=== PATIENT | male | born 1955 | race Caucasian/White ===

== ENCOUNTER 2022-03-14 18:21 | Inpatient (IN) | payer BC, OTHER ==
[~2022-03-14] VITALS: Ht 165.1 cm; Wt 71.7 kg
[2022-03-14 19:15] VITALS: BP_SYST 114
--- NOTE | 2022-03-14 19:30 | NUR ---
Patient to ER bed [facility] to [place] for evaluation. Side rails up. Report given to Arianne SHELBY.
[2022-03-14] MEDS ORDERED: NACL 0.9% 1,000 ML IV ONE ×2 (20:00→22:30)
[2022-03-14] MEDS ORDERED: MORPHINE 4 MG INJ. 4 MG/ML VIAL IVP ONE (20:00)
[2022-03-14] MEDS ORDERED: ONDANSETRON HCL 4 MG/2 ML VIAL IVP ONE (20:00)
--- NOTE | 2022-03-14 20:00 | NUR ---
Pt. presents emergency department with a few day history of moderate to severe, worsening, constant lower right back pain which feels like tightness. Patient states he has had a kidney stone before and it feels similar to this. Patient notes an episode of vomiting after eating which he believes is related to his pain. He denies any testicular pain, fever, or chills. Patient's notes a recent prostate surgery 12/18/2021.
[2022-03-14 20:27] LABS: BASOPHILS % (AUTO) 0.1 % (0.0-2.0); HEMATOCRIT 41.8 % (36-54); HEMOGLOBIN 13.9 g/dL (14.0-18.0); LYMPHOCYTES # (AUTO) 0.3 K/uL (1.0-5.5); LYMPHOCYTES % (AUTO) 2.9 % (20.5-51.5); MEAN CORPUSCULAR HEMOGLOBIN 31 pg (27-31); MEAN CORPUSCULAR HGB CONC 33 % (32-36); MEAN CORPUSCULAR VOLUME 93 fL (79.0-98.0); MONOCYTES % (AUTO) 0.5 % (1.7-9.3); NEUTROPHILS # (AUTO) 8.7 K/uL (1.8-7.7); NEUTROPHILS % (AUTO) 96.5 % (40.0-70.0); PLATELET COUNT (AUTO) 159 K/uL (130-430); RED BLOOD CELL COUNT(AUTO) 4.49 MIL/uL (4.2-6.2); RED CELL DISTRIBUTION WIDTH 13.7 % (9.0-15.0)
[2022-03-14] MEDS ORDERED: KETOROLAC TROMETHAMINE 30 MG VIAL IVP ONE (20:30)
--- NOTE | 2022-03-14 20:30 | NUR ---
# 20 gauge angiocath placed to RAC. Use of asceptic technique. Opsite placed over site. Blood return noted. Blood for lab drawn from site. Flushed with 10 cc of normal saline. No evidence of infiltration noted. Patient tolerated well.
--- NOTE | 2022-03-14 20:35 | NUR ---
Pt moved to bed 6,Report given to Radha SHELBY.
[2022-03-14 20:45] LABS: CREATININE 1.78 mg/dL (0.55-1.30)
[2022-03-14 20:51] LABS: ALBUMIN 3.6 g/dL (3.4-4.8); TOTAL BILIRUBIN 0.7 mg/dL (0.0-1.0)
--- NOTE | 2022-03-14 21:00 | NUR ---
PT FROM HOME WITH C/O OF RIGHT FLANK PAIN X A COUPLE OF HOURS. PT STATES WHEN THE PAIN STARTED, HE STARTED EXPERIENCING N/V, REPORTS 4 EPISODES VOMITING. DENIES HEMATEMESIS, AND URINARY SYMPTOMS. VSS, SAFETY PRECAUTIONS IN PLACE AND CONNECTED TO MONITOR.
--- NOTE | 2022-03-14 21:09 | NUR ---
Medicated per MD orders. IVF infusing with no s/s of infiltration at this time. Will cont to monitor
[2022-03-14 21:21] LABS: BILIRUBIN,URINE NEGATIVE (NEGATIVE); BLOOD, URINE 3+ (NEGATIVE); CLARITY/URINE SL CLOUDY (CLEAR); COLOR,URINE YELLOW (YELLOW); GLUCOSE,URINE 2+ (NEGATIVE); KETONES,URINE 2+ (NEGATIVE); LEUKOCYTE ESTERASE ,URINE 1+ (NEGATIVE); NITRITE, URINE POSITIVE (NEGATIVE); PH,URINE 5.5 (5.0-8.0); PROTEIN URINE 1+ (NEGATIVE); UROBILINOGEN,URINE 0.2 (0.2-1.0)
[2022-03-14 21:31] LABS: RBC,URINE 80-100 /HPF (0-3)
[2022-03-14 21:32] LABS: BACTERIA,URINE MANY /HPF (None Seen); WBC,URINE >100 /HPF (0-3)
[2022-03-14] MEDS ORDERED: cefTRIAXone 1 GM in D5W 50 ML IV ONE (21:45)
--- NOTE | 2022-03-14 22:00 | NUR ---
COVID SWAB SENT COLLECTED AND SENT TO LAB.
--- NOTE | 2022-03-14 22:07 | NUR ---
Admit bed requested Patient will be admitted to care of Dr.PALIWAL Heath Admitted to MED SURG unit. Diagnosis UTI,KIDNEY STONE Inpatient (Yes or No) YES Observation (Yes or No) NO Orientation concerns or request close to nursing station (Yes or No) NO Covid Status PENDING On vent or bipap NO Isolation requirements NO Needs a sitter NO From Home (Yes or if No enter name of facility) YES Requires Dialysis (Yes or No) NO Med Rec Completed (Yes of No) PENDING
--- NOTE | 2022-03-14 22:10 | NUR ---
Patient will be admitted to care of DR. RICE. Admitted to TELEMETRY unit. Will go to room 118. Belongings list completed. Complete and up to date summary report printed. SBAR report given GILBERT SHELBY at bedside with opportunity for questions.
[2022-03-14] MEDS ORDERED: D5/0.45 NS 1,000 ML IV SCH (22:15)
[2022-03-14] MEDS ORDERED: cefTRIAXone 1 GM VIAL ONE (22:27)
[2022-03-14] MEDS ORDERED: NS 500 ML IV ONE (22:45)
[2022-03-14] MEDS ORDERED: ACETAMINOPHEN 500 MG TABLET PO ONE (22:45)
--- NOTE | 2022-03-14 22:50 | NUR ---
ADMISSION NOTE Received patient from ER via gurney. Patient admitted with diagnosis of UTI/ Kidney Stone. Patient is awake, alert, oriented X 4. Patient oriented to hospital room, call light, toileting, pain management and safety-teach back done. Patient informed that I (Jami) will be his nurse and that their room number is 118-B. Pt denies any chest pain,pain,sob,or any acute distress. Personal belongings checked and Belongings List documented. IV site of LAC #20 patent,no s/s any infiltraion noted. IVF infusing well. Call light within reach,side rails x2. cont to monitor pt.
[2022-03-14 23:01] VITALS: BP_SYST 119
[2022-03-14] MEDS ORDERED: METF-379 PO (23:43)
--- NOTE | 2022-03-14 23:43 | NUR ---
MED REC COMPLETED, INFO PROVIDED BY PATIENT.
[2022-03-15] VITALS (7 sets, daily range): BP systolic 94–142
--- NOTE | 2022-03-15 01:35 | NUR ---
ROUNDS; -Pt is asleep, resting in bed. No s/s any pain,sob,or any acute distress. IVF infusing well. Fall precaution in place. Side rails x2, call light w/in reach. Cont to monitor pt.
--- NOTE | 2022-03-15 02:39 | NUR ---
RAPID RESPONSE -0249-Pt is stating that he can't breathe. Pt is having bronchospasm. c6fim=13% room air. Placed pt on 3L nc/ oxy 97%. VS 98.2, 30, 142/97, 130. OFFICE CLERK ROUTINE team arrived and Linda wash house supervisor are at bedside. -0245- paged Dr. Schwartz and waiting for md to return callback -0245- ordered stat ekg ( show extreme tachycardia), placed a telemetry on pt, ABG performed by OFFICE CLERK ROUTINE Joe at bedside. IM=180. -0254-Lasix 40mg IVP given by Linda -0255-Solumedrol 125mg ivp given by Linda and CXR performed. VSS 132/68,120. Pt seem more calm. Pt's condition stable. Endorsed to Noa-HERON to continuity of care.
--- NOTE | 2022-03-15 02:42 | NUR ---
Paged Dr. Schwartz Rene
[2022-03-15] MEDS ORDERED: FUROSEMIDE 40 MG/4 ML VIAL ONE (02:53)
[2022-03-15] MEDS ORDERED: methylPREDNISolone SOD SUCC/PF 62.5 MG/ML VIAL ONE (02:55)
[2022-03-15] MEDS ORDERED: FUROSEMIDE 40 MG/4 ML VIAL IVP ONE (03:00)
[2022-03-15] MEDS ORDERED: METHYLPREDNISOLONE SOD SUCC 40 MG/ML VIAL IVP ONE (03:00)
--- NOTE | 2022-03-15 05:59 | NUR ---
Patient sleeping no sign of acute distress ,Paged Dr. Schwartz for DDIMER result.
--- NOTE | 2022-03-15 06:19 | NUR ---
Consultation Paged Reason for Consultation: Kidney Stone, Uti Was consult called: Y Person who was notified: left a voice message to Dr. Saldana Consulting Physician: Dr. Saldana Ordering Physician: Rene Artis
--- NOTE | 2022-03-15 08:00 | NUR ---
SUMMARY OF CARE 0800 PATIENT WAS SEEN BY TATIANA Daley OF DR POLLARD, PATIENT REFUSED STEN PLACEMENT AND DECIDED TO TAKE FLOMAX AND WILL SEE HIS OWN UROLOGIST AN OUTPATIENT. 1100 DR RICE MADE AWARE THAT PATIENT REFUSED STENT PLACEMENT, TO START A NEW ANTIBIOTIC FOR UTI. 1430 WENT TO VQ SCAN. 1530 PATIENT BACK FROM VQ SCAN, WANTED TO GO HOME BUT REFUSED TO SIGN AMA AND WANTS TO GO HOME WITH PO ANTIBIOTIC, PATIENT SPOKE TO DR RICE ASKING FOR PO ANTIBIOTIC TO GO HOME. MD IS NOT CLEARING PATIENT TO GO HOME, NEEDS TO WAIT FOR URINE CULTURE RESULTS. 1530 PATIENT IS ON THE PHONE WITH HIS OWN UROLOGIST, NOT DECIDED IF HE IS LEAVING BECAUSE HE WANTS TO MAKE SURE THAT HE WILL GET A P.O ANTIBIOTIC TO BRING HOME. 1830 PATIENT DECIDED TO STAY IN THE HOSPITAL.
--- NOTE | 2022-03-15 09:16 | NUR ---
CONSULTATION PAGED/CALLED Reason for Consultation: [] PROSTATE PROBLEM Person Who was Notified: [] LIZZIE Consulting Physician: [] DR SALEEM CARDOZA Pot Pusher Specialty: [] UROLOGIST Ordering Physician: [] Allie STARR DR IS [place] OF [place] AND WILL BE BACK MAR 2611/2022.
--- NOTE | 2022-03-15 09:25 | NUR ---
RIGHT AWAY, INFORMED MD DR POLLARD ( KELLI GREEN) TO CONTINUE THE CARE SINCE DR SALEEM CARDOZA IS OUT OF TOWN.
[2022-03-15] MEDS ORDERED: NALOXONE HCL 0.4 MG/ML AMP (NARCAN) IVP PRN ×2 (10:45)
[2022-03-15] MEDS ORDERED: ALBUTEROL SULFATE 0.083% 2.5 MG/3 ML VIAL.NEB INH PRN (10:45)
[2022-03-15] MEDS ORDERED: HYDROcodone/ACETAMIN 5-325 MG TAB (NORCO/ VICODIN) PO PRN (10:45)
[2022-03-15] MEDS ORDERED: ACETAMINOPHEN 325 MG TABLET PO PRN (10:45)
[2022-03-15] MEDS ORDERED: IPRATROPIUM BROM 0.5 MG/2.5 ML VIAL.NEB (ATROVENT) INH PRN (10:45)
--- NOTE | 2022-03-15 10:47 | NUR ---
CONSULTATION PAGED/CALLED Reason for Consultation: [] RESP FAIL Person Who was Notified: [] PHONG Consulting Physician: [] DR BLACK Machine Tester Specialty: [] PULMO Ordering Physician: [] DR Bonita RICE
--- NOTE | 2022-03-15 10:49 | NUR ---
CONSULTATION PAGED/CALLED Reason for Consultation: [] UTI Person Who was Notified: [] KELVIN Consulting Physician: [] DR REYEZ Supervisor Shearing Specialty: [] ID Ordering Physician: [] DR Bonita RICE
[2022-03-15] MEDS: TAMSULOSIN HCL 0.4 MG CAP PO SCH (12:04)
[2022-03-15] MEDS: cefTRIAXone 1 GM IVPB PREMIX 50 ML IV SCH (12:05)
[2022-03-15] MEDS ORDERED: TOBRAMYCIN SULFATE 100 MG in NS 50 ML IV ONE (17:00)
[2022-03-15] MEDS: metFORMIN HCL 500 MG TABLET PO SCH (18:25)
[2022-03-15] MEDS: 0.45% NACL 1,000 ML IV SCH (18:27)
--- NOTE | 2022-03-15 20:00 | NUR ---
OPENING Received report from day shift nurse. Patient resting in bed, unlabored breathing on room air, no sign of distress. IV fluids infusing. Safety precautions in place.
--- NOTE | 2022-03-15 20:55 | NUR ---
24 hour urine collection started at 205403/15/22.
--- NOTE | 2022-03-15 23:30 | NUR ---
DR. QUIÑONEZ Informed Dr. Quiñonez that we have not been able to reach Dr. Palmer, but that the preliminary blood culture result came back positive for gram negative rods. Dr. Quiñonez stated that the patient's current antibiotic is fine for now.
[2022-03-16 00:45] VITALS: BP_SYST 105
--- NOTE | 2022-03-16 03:30 | NUR ---
Total of 450 mL urine collected in 24 hour container. [place] given for 5/10 right flank/back pain. Patient states the pain is not as bad as when he came in. No shortness of breath or sign of distress noted. Safety precautions in place.
[2022-03-16] MEDS: 0.45% NACL 1,000 ML IV SCH ×4 (03:38→21:26)
--- NOTE | 2022-03-16 07:30 | NUR ---
CLOSING Patient resting in bed, unlabored breathing on room air. Accucheck 108 this morning. IV fluids infusing. Tele monitor showing increased PVCs this morning around 0630. Patient asymptomatic, states he feels fine. BP 104/53, HR 60, 97% on room air, temp 97.3, respirations 16. No complaint of pain.
--- NOTE | 2022-03-16 08:00 | NUR ---
Initial Notes Patient is AOx4. No ss of acute distress noted. Breathing is even and nonlabored, on room air. Patient denies severe pain at this time. Does not request pain medication. Denies SOB. IV patent. IVF running. Bed is locked and at lowest position. Call light within reach.
[2022-03-16 08:01] LABS: BASOPHILS % (AUTO) 0.1 % (0.0-2.0); HEMATOCRIT 35.6 % (36-54); HEMOGLOBIN 11.8 g/dL (14.0-18.0); LYMPHOCYTES # (AUTO) 1.5 K/uL (1.0-5.5); LYMPHOCYTES % (AUTO) 9.8 % (20.5-51.5); MEAN CORPUSCULAR HEMOGLOBIN 31 pg (27-31); MEAN CORPUSCULAR HGB CONC 33 % (32-36); MEAN CORPUSCULAR VOLUME 93 fL (79.0-98.0); MONOCYTES # (AUTO) 0.8 K/uL (0.0-1.0); NEUTROPHILS % (AUTO) 85.1 % (40.0-70.0); PLATELET COUNT (AUTO) 77 K/uL (130-430); RED BLOOD CELL COUNT(AUTO) 3.82 MIL/uL (4.2-6.2); RED CELL DISTRIBUTION WIDTH 14.1 % (9.0-15.0); WHITE BLOOD COUNT (AUTO) 15.3 K/uL (4.8-10.8)
--- NOTE | 2022-03-16 08:18 | NUR ---
LANE PAGED PAGED DR.JAMALCEDIRC AT [phone] SPOKE WITH
[2022-03-16 08:51] LABS: ALBUMIN 2.6 g/dL (3.4-4.8); C-REACTIVE PROTEIN QUANT 17.5 mg/dL (0-0.5); CALCIUM 8.2 mg/dL (8.4-11.0); CREATININE 1.92 mg/dL (0.55-1.30); TOTAL BILIRUBIN 0.4 mg/dL (0.0-1.0)
[2022-03-16] MEDS: metFORMIN HCL 500 MG TABLET PO SCH (09:07)
[2022-03-16] MEDS: TAMSULOSIN HCL 0.4 MG CAP PO SCH (09:07)
[2022-03-16] MEDS: HYDROcodone/ACETAMIN 10-325 MG TAB PO PRN (10:02)
[2022-03-16 11:02] LABS: ERYTHROCYTE SEDIMENTATION RATE 21 MM/HR (0-15)
--- NOTE | 2022-03-16 11:13 | NUR ---
HIGH ALERT NOTE: Called Dr. collins back at identified within the medical roster to verify physician authenticity.
[2022-03-16] MEDS ORDERED: POTASSIUM CHLORIDE 20 MEQ TAB.PRT.SR PO ONE (11:15)
[2022-03-16] MEDS ORDERED: MORPHINE 2 MG/ML INJ. SYRINGE IVP PRN (11:15)
[2022-03-16] MEDS ORDERED: D5/0.45 NS 1,000 ML IV SCH (11:15)
[2022-03-16] MEDS ORDERED: NALOXONE HCL 0.4 MG/ML AMP (NARCAN) IVP PRN (11:15)
--- NOTE | 2022-03-16 11:17 | NUR ---
CONSULTATION PAGED REASON FOR CONSULTATION:RENAL WAS CONSULT CALLED?Y PERSON WHO WAS NOTIFIED:SANJAY CONSULTING PHYSICIAN:JAZMINE CHAO DIE MAKER BENCH STAMPING SPECIALTY:NEPHRO DIE MAKER BENCH STAMPING PHONE NUMBER:[phone] REQUESTING PHYSICIAN:CEDRIC BROWN
[2022-03-16 11:36] VITALS: BP_SYST 99
[2022-03-16] MEDS: MORPHINE 4 MG INJ. 4 MG/ML VIAL IVP PRN ×2 (11:55→17:52)
[2022-03-16] MEDS: cefTRIAXone 1 GM IVPB PREMIX 50 ML IV SCH (13:24)
--- NOTE | 2022-03-16 14:30 | NUR ---
Dietitian Recommendations * Continue [facility] diet * Consider Glucerna or Nepro ONS if PO intakes do not improve by Nutrition F/U LP, MS, RD Please refer to Nutrition Assessment for details. Addendum: 03/16/22 at [address] Amended: Links added.
[2022-03-16 14:37] LABS: BASOPHILS % (AUTO) 0.1 % (0.0-2.0); EOSINOPHILS # (AUTO) 0.1 K/uL (0.0-0.4); EOSINOPHILS % (AUTO) 0.7 % (0.0-4.0); HEMATOCRIT 37.9 % (36-54); HEMOGLOBIN 12.6 g/dL (14.0-18.0); LYMPHOCYTES % (AUTO) 6.5 % (20.5-51.5); MEAN CORPUSCULAR HEMOGLOBIN 31 pg (27-31); MEAN CORPUSCULAR HGB CONC 33 % (32-36); MEAN CORPUSCULAR VOLUME 93 fL (79.0-98.0); MONOCYTES # (AUTO) 0.5 K/uL (0.0-1.0); MONOCYTES % (AUTO) 3.6 % (1.7-9.3); NEUTROPHILS % (AUTO) 89.1 % (40.0-70.0); PLATELET COUNT (AUTO) 82 K/uL (130-430); RED BLOOD CELL COUNT(AUTO) 4.06 MIL/uL (4.2-6.2); WHITE BLOOD COUNT (AUTO) 14.6 K/uL (4.8-10.8)
[2022-03-16] MEDS: ONDANSETRON HCL 4 MG/2 ML VIAL IVP PRN ×2 (15:11→21:11)
[2022-03-16 16:34] VITALS: BP_SYST 123
[2022-03-16 20:00] VITALS: BP_SYST 119
--- NOTE | 2022-03-16 20:04 | NUR ---
Closing Notes Patient is resting, eyes closed. No ss of distress noted. Breathing is even and nonlabored, on room air. No facial grimace noted. IV patent. IVF running. Patient stable at this time. All needs met. Patient to have cystoscopy tomorrow. Consents signed. Patient to be NPO after midnight. Safety precautions in place and call light within reach. Endorsed care to Calista SHELBY.
[2022-03-16] MEDS: INSULIN REGULAR, HUMAN 100 UNITS/ML, 3 ML VIAL (humuLIN R) SUBCUT PRN (21:24)
[2022-03-17] MEDS: 0.45% NACL 1,000 ML IV SCH ×3 (04:32→19:30)
[2022-03-17 08:00] VITALS: BP_SYST 130
--- NOTE | 2022-03-17 08:15 | NUR ---
SUMMARY OF CARE 0815 PATIENT PUBLIC RELATIONS ACCOUNT EXECUTIVE BY O.R STAFF FOR SURGERY TODAY, INITIAL ASSESSMENT DONE TO PATIENT. 1100 BACK TO SURGERY, S/P STENT PLACEMENT, POST OP VITAL SIGNS STARTED, DENIES PAIN, FAMILY AT BEDSIDE, NO BLEEDING NOTED, URINATED W/O DIFFICULTY.TOOK ICE CHIPS, TO START DIET TO PATIENT. 1300 CLEAR LIWUID DIET STARTED, TOLERATED WELL 1500 ASSISTED TO THE BATHROOM, HAD A BM.
[2022-03-17 08:16] LABS: BASOPHILS % (AUTO) 0.2 % (0.0-2.0); EOSINOPHILS # (AUTO) 0.2 K/uL (0.0-0.4); EOSINOPHILS % (AUTO) 1.5 % (0.0-4.0); HEMATOCRIT 35.1 % (36-54); HEMOGLOBIN 11.8 g/dL (14.0-18.0); LYMPHOCYTES # (AUTO) 1.3 K/uL (1.0-5.5); LYMPHOCYTES % (AUTO) 10.6 % (20.5-51.5); MEAN CORPUSCULAR HEMOGLOBIN 31 pg (27-31); MEAN CORPUSCULAR HGB CONC 34 % (32-36); MEAN CORPUSCULAR VOLUME 92 fL (79.0-98.0); MONOCYTES # (AUTO) 0.6 K/uL (0.0-1.0); MONOCYTES % (AUTO) 5.2 % (1.7-9.3); NEUTROPHILS # (AUTO) 9.8 K/uL (1.8-7.7); NEUTROPHILS % (AUTO) 82.5 % (40.0-70.0); PLATELET COUNT (AUTO) 82 K/uL (130-430); WHITE BLOOD COUNT (AUTO) 11.9 K/uL (4.8-10.8)
[2022-03-17 08:29] LABS: C-REACTIVE PROTEIN QUANT 9.5 mg/dL (0-0.5); CREATININE 2.06 mg/dL (0.55-1.30); PHOSPHORUS 3.7 mg/dL (2.7-4.5)
[2022-03-17] MEDS ORDERED: cefTRIAXone 1 GM VIAL IV ONE (08:30)
[2022-03-17] MEDS ORDERED: MIDAZOLAM HCL 5 MG/5 ML VIAL IVP ONE (08:30)
[2022-03-17] MEDS ORDERED: LR 1,000 ML IV.SOLN IV ONE (08:30)
[2022-03-17] MEDS ORDERED: PROPOFOL 200MG/ 20ML VIAL (DIPRIVAN) IV ONE (08:30)
[2022-03-17] MEDS ORDERED: SEVOFLURANE 15 MIN GAS INH ONE (08:30)
[2022-03-17] MEDS ORDERED: NS IRRIG SOLN 1000 ML IR ONE (08:30)
[2022-03-17 08:42] LABS: INR 0.9 (0.80-1.20); PROTHROMBIN TIME 9.2 SECS (9.5-12.5)
[2022-03-17] MEDS ORDERED: ONDANSETRON HCL 4 MG/2 ML VIAL IVP PRN (09:15)
[2022-03-17] MEDS ORDERED: fentaNYL CITRATE/PF 100 MCG/2 ML AMP IVP PRN ×2 (09:15)
[2022-03-17] MEDS ORDERED: METOCLOPRAMIDE HCL 10 MG/2 ML VIAL IVP PRN (09:15)
[2022-03-17] MEDS: TAMSULOSIN HCL 0.4 MG CAP PO SCH (11:03)
--- NOTE | 2022-03-17 11:35 | NUR ---
blood glucose was 113 mg/dl. no coverage needed.
[2022-03-17 11:42] LABS: ERYTHROCYTE SEDIMENTATION RATE 28 MM/HR (0-15)
[2022-03-17] MEDS: cefTRIAXone 1 GM IVPB PREMIX 50 ML IV SCH (12:00)
[2022-03-17] MEDS: HYDROcodone/ACETAMIN 10-325 MG TAB PO PRN (15:11)
[2022-03-17 16:19] VITALS: BP_SYST 112
--- NOTE | 2022-03-17 16:37 | NUR ---
blood glucose 170 mg/ dl.
[2022-03-17] MEDS: INSULIN REGULAR, HUMAN 100 UNITS/ML, 3 ML VIAL (humuLIN R) SUBCUT PRN (17:56)
[2022-03-17 19:00] VITALS: BP_SYST 127
[2022-03-17 20:00] VITALS: BP_SYST 127
[2022-03-18] VITALS (7 sets, daily range): BP systolic 122–137
[2022-03-18] MEDS: 0.45% NACL 1,000 ML IV SCH ×3 (05:29→19:30)
--- NOTE | 2022-03-18 07:35 | NUR ---
OPENING NOTE Received report from meat sales and storage manager nurse. Patient resting in bed. A/O x 4, Irish speaking. Breathing even and unlabored on room air. NO pain, No SOB, no distress, noted. Patient has IV to Left hand 20g, patent on SL. Patient on bedrest but has Bathroom Privileges. All needs met at this time, bed is locked in lowest position, call light within reach. Will continue to monitor.
--- NOTE | 2022-03-18 07:51 | NUR ---
SUPERVISOR LEAF SPRING REPAIR at Bedside discussing stent.
[2022-03-18] MEDS: TAMSULOSIN HCL 0.4 MG CAP PO SCH (08:27)
--- NOTE | 2022-03-18 11:30 | NUR ---
24 UA Recollecting 24 hour urine due to Creatine and Sodium not being collected. Patient aware and started collection at 1130am. Will continue to monitor.
--- NOTE | 2022-03-18 12:05 | NUR ---
PATIENT ROUNDS Patient resting in bed. Breathing even and unlabored on room air. NO pain, No SOB, no distress, noted. All needs met at this time, bed is locked in lowest position, call light within reach. Will continue to monitor.
[2022-03-18] MEDS: cefTRIAXone 1 GM IVPB PREMIX 50 ML IV SCH (12:25)
[2022-03-18] MEDS: HYDROcodone/ACETAMIN 10-325 MG TAB PO PRN (13:45)
--- NOTE | 2022-03-18 18:51 | NUR ---
Closing Note Patient resting in bed. A/O x 4, Mohawk speaking. Breathing even and unlabored on room air. NO pain, No SOB, no distress, noted. Patient has IV to Left hand 20g, patent on infusion pump. Patient on bedrest but has Bathroom Privileges, actively collecting 24 hour urine. All needs met at this time, bed is locked in lowest position, call light within reach. Will endorse to nightshift nurse.
--- NOTE | 2022-03-18 19:15 | NUR ---
change of shift.pt.presents quiescent affect;calm,resting.pt.presents 24hr urine collection;initiated@1130a.i have reviewed/reiterated to the pt.that urine sample collection must not be interrupted.all urine collected w/in 24hr's placed w/in 24hr urine collection container.pt.capable to ambulate;un-assisted/reposition self.general status stable.respiratory status stable @room air.call light/telephone w/in access of the pt.
--- NOTE | 2022-03-18 20:00 | NUR ---
pt.assessed.v/s assessed values wnl.no c/o pain,nausea.pt.apprised snacks/beverages are available w/in the shift.no requests posited@this hour. i have attended to the urinal placed the content w/in the 24hr urine collection container.pt.capable to reposition self.iv access intact;patent.call light/telephone placed w/in access of the pt.
--- NOTE | 2022-03-18 20:30 | NUR ---
blood glucose assessed value:135mg/dl.
--- NOTE | 2022-03-18 22:00 | NUR ---
pt.assessed.pt.quiescent.i have attended to the urinal content placed w/in the 24hr urine container.per flacc pain mgx pt.absent facial grimaces/body posturing.pt.capable to reposition self.call light/telephone w/in access of the pt.
[2022-03-19] VITALS: BP_SYST 125
--- NOTE | 2022-03-19 | NUR ---
pt.assessed.v/s assessed values wnl.no c/o pain,nausea.no requests piste@this hpiur.urinaslatendew to.niecy [darleene w/.in 24hr urinc cmntainr.[tvaplto reieonself.ca;ighty/.telehp ew/iacess of thpt.
--- NOTE | 2022-03-19 02:00 | NUR ---
pt.assessed.pt.quiescent;somnolent.i have attended to the urinal placed content w/in 24hr container.pt.capable to reposition self.call light/telephone w/in access of the pt.
--- NOTE | 2022-03-19 04:00 | NUR ---
pt.assessed.urinal attended to placed content w/in 24hr container.no c/o pain,nausea.no requests posited@this hour. pt.capable to reposition self.call light/telephone w/in access of the pt.
--- NOTE | 2022-03-19 04:45 | NUR ---
pt.requested medication;pain.norco:10/325mg po administered.to assess the efficacy of the pain medication per pain mgx protocol.
[2022-03-19] MEDS: HYDROcodone/ACETAMIN 10-325 MG TAB PO PRN (04:57)
[2022-03-19] MEDS: 0.45% NACL 1,000 ML IV SCH (05:46)
[2022-03-19 06:21] LABS: BASOPHILS % (AUTO) 0.5 % (0.0-2.0); EOSINOPHILS # (AUTO) 0.3 K/uL (0.0-0.4); EOSINOPHILS % (AUTO) 4.9 % (0.0-4.0); HEMATOCRIT 36.5 % (36-54); HEMOGLOBIN 12.6 g/dL (14.0-18.0); LYMPHOCYTES # (AUTO) 1.8 K/uL (1.0-5.5); LYMPHOCYTES % (AUTO) 25.9 % (20.5-51.5); MEAN CORPUSCULAR HEMOGLOBIN 31 pg (27-31); MEAN CORPUSCULAR HGB CONC 34 % (32-36); MEAN CORPUSCULAR VOLUME 91 fL (79.0-98.0); MONOCYTES # (AUTO) 0.6 K/uL (0.0-1.0); MONOCYTES % (AUTO) 8.9 % (1.7-9.3); NEUTROPHILS # (AUTO) 4.2 K/uL (1.8-7.7); NEUTROPHILS % (AUTO) 59.8 % (40.0-70.0); PLATELET COUNT (AUTO) 118 K/uL (130-430); RED BLOOD CELL COUNT(AUTO) 4.03 MIL/uL (4.2-6.2); RED CELL DISTRIBUTION WIDTH 13.4 % (9.0-15.0)
--- NOTE | 2022-03-19 06:37 | NUR ---
pt krzysztof fountain/sharon cowan [facility];ue;1mg/fdl. Addendum: 03/19/22 at 0642 by Tashi Sawant RN rewrite above note. pt assessed.no c/o,pain,nausea.blood glucose assess value:131mg/dl.no requests posited@this hour.pt.capable to reposition self.24hr urine collection in progress.call light/telephone placed w/in access of the pt.
[2022-03-19 06:55] LABS: ALBUMIN 2.4 g/dL (3.4-4.8); C-REACTIVE PROTEIN QUANT 4.3 mg/dL (0-0.5); CALCIUM 8.4 mg/dL (8.4-11.0); CREATININE 1.08 mg/dL (0.55-1.30); PHOSPHORUS 3.6 mg/dL (2.7-4.5); TOTAL BILIRUBIN 0.6 mg/dL (0.0-1.0)
--- NOTE | 2022-03-19 07:37 | NUR ---
rn opening note Report was endorsed by night nurse. patient appears to be resting with both eyes closed no signs fo any distress, breathing is equal and non labored. telemonitor in place. no other needs at this time.
[2022-03-19 08:00] VITALS: BP_SYST 143
[2022-03-19 08:13] LABS: ERYTHROCYTE SEDIMENTATION RATE 31 MM/HR (0-15)
[2022-03-19] MEDS: TAMSULOSIN HCL 0.4 MG CAP PO SCH (09:59)
--- NOTE | 2022-03-19 10:00 | NUR ---
MEDICATION PATIENTS SCHEDULED MEDICATION GIVEN PER ORDER. PATIENT IS AWAKE AND ALERT. PATIENTS URINE IS BEING COLLECTED AND ON ICE. PATIENT EDUCATED EDGE FINISHER LIGHT , CALL LIGHT IS WITH HIM. PATIENT HAS NO COMPLAINTS AT THIS TIME.
[2022-03-19] MEDS: cefTRIAXone 1 GM IVPB PREMIX 50 ML IV SCH (11:53)
--- NOTE | 2022-03-19 11:59 | NUR ---
ACCU CHECK/ ANTIBIOTICS PATIENTS ACCU CHECK DONE, NO COVERAGE NEEDED. PATIENT SCHEDULED MEDICATION GIVEN ORDERED. PATIENT DONE WITH URINE COLLECTION. PATIENT HAS NO COMPLAINTS AT THIS TIME. CALL LIGHT IS WITH HIM EDUCATED TO USE CALL LIGHT FOR ASSISTANCE. NO OTHER NEEDS AT THIS TIME.
[2022-03-19 12:05] VITALS: BP_SYST 147
--- NOTE | 2022-03-19 14:30 | NUR ---
navya martin patient is sitting in bed no complaints this time. call light is with him educated to use for assistance. urinal emptied as needed.
[2022-03-19 16:00] VITALS: BP_SYST 123
[2022-03-19 16:03] LABS: CREATININE 1.08 mg/dL (0.55-1.30)
[2022-03-19] MEDS ORDERED: LEVO750T64 PO ×2 (16:19→23:58)
[2022-03-19 17:02] VITALS: BP_SYST 123
--- NOTE | 2022-03-19 17:44 | NUR ---
discharge patient discharged per order. Patient has all belongings with him educated on discharge paperwork with no further questions. phone number provided for md's. patients iv removed catheter intact applied gauze and tape to insertion site. id band removed. patient wheel out to car. patient informed that md will place antibiotic order tomorrow to preferred pharmacy. patient has no other needs at this time.
--- NOTE | 2022-03-19 18:00 | NUR ---
Dr. moe obtained orders fro discharge from Dr. moe continue home medication. have patient follow up with dr. alvarado in one week. he will plced antibiotic orders tomorrow patient informed. states is out shopping will let me know when she is here.
[2022-03-19 19:08] LABS: COLLECTION TIME,URINE 24 HR; SODIUM TIMED,URINE 80 mmol/L; SODIUM URINE, 24HR CALC 328 mmol/24H (40-220); TOTAL VOLUME 24HRS,URINE 4100 mL
[2022-03-19 19:38] LABS: CREATININE CLEARANCE,URINE 94.5 ml/min (80-120); CREATININE,URINE 37.3 MG/DL (30-125)
== END 2022-03-19 17:44 | disposition home or self-care (01) | DRG 853 ==
LOC: SED 18:21 → SMU 22:05 → STU 22:10 → SMU 22:26 → STU 03-15 03:05
PROVIDERS: ADMIT Preventive Medicine Preventive Medicine/Occupational Environmental Medicine; ATTEND Specialist
PROC: BT1DZZZ Fluoroscopy of Right Kidney, Ureter and Bladder (ICD-10-PCS; 2022-03-17)
PROC: 0T768DZ Dilation of Right Ureter with Intraluminal Device, Via Natural or Artificial Opening Endoscopic (ICD-10-PCS; principal; 2022-03-17 08:30)
DX: A41.59 Other Gram-negative sepsis (principal); J96.01 Acute respiratory failure with hypoxia; N17.0 Acute kidney failure with tubular necrosis; E87.20 Acidosis, unspecified; N13.6 Pyonephrosis; N39.0 Urinary tract infection, site not specified; N10 Acute pyelonephritis; E11.65 Type 2 diabetes mellitus with hyperglycemia; I12.9 Hypertensive chronic kidney disease with stage 1 through stage 4 chronic kidney disease, or unspecified chronic kidney disease; E11.22 Type 2 diabetes mellitus with diabetic chronic kidney disease; N18.9 Chronic kidney disease, unspecified; Z20.822 Contact with and (suspected) exposure to COVID-19; N40.0 Benign prostatic hyperplasia without lower urinary tract symptoms; Z85.46 Personal history of malignant neoplasm of prostate; Z87.442 Personal history of urinary calculi; Z90.49 Acquired absence of other specified parts of digestive tract; Z79.899 Other long term (current) drug therapy; Z79.84 Long term (current) use of oral hypoglycemic drugs; B96.1 Klebsiella pneumoniae [K. pneumoniae] as the cause of diseases classified elsewhere; N20.0 Calculus of kidney
CPT/HCPCS: 36415; 36600; 71045; 76000; 76376; 78579; 78580-TC; 80048; 80053; 81000; 82575; 82803-TC; 83605; 83690; 83735; 83880; 84100; 84156; 84300-TC; 84560; 85025; 85379; 85610-TC; 85651-TC; 85730-TC; 86140; 87040; 87081; 87086; 93005; 93970; 94760; 96374; 96375; 99285; A9539; A9540; C1769; C2625; G0378; J0696; J1815; J1885; J1940; J2250; J2270; J2405; J2704; J2930; J3260; J7030; J7120; Q9967

== ENCOUNTER 2022-03-30 05:37 | Day surgery (SDC) | payer BC, OTHER ==
[~2022-03-30] VITALS: Ht 165.1 cm; Wt 63.8 kg
[~2022-03-30 05:37] MED LIST: LEVO750T64 PO; METF-379 PO
[2022-03-30] MEDS ORDERED: ONDANSETRON HCL 4 MG/2 ML VIAL ONE (07:45)
[2022-03-30] MEDS ORDERED: cefTRIAXone 1 GM VIAL ONE (07:45)
[2022-03-30] MEDS ORDERED: DEXAMETHASONE SOD PHOSPHATE 4 MG/ML VIAL ONE (07:45)
[2022-03-30] MEDS ORDERED: PROPOFOL 200MG/ 20ML VIAL (DIPRIVAN) IV ONE (07:45)
[2022-03-30] MEDS ORDERED: fentaNYL CITRATE/PF 100 MCG/2 ML AMP ONE (07:45)
[2022-03-30] MEDS ORDERED: LR 1,000 ML IV.SOLN IV ONE (07:45)
[2022-03-30] MEDS ORDERED: DESFLURANE 15 MIN GAS INH ONE (07:45)
[2022-03-30] MEDS ORDERED: ACETAMINOPHEN I.V. 1000 MG 100 ML IV PRN (08:00)
[2022-03-30] MEDS ORDERED: ONDANSETRON HCL 4 MG/2 ML VIAL IVP PRN (08:00)
[2022-03-30] MEDS ORDERED: KETOROLAC TROMETHAMINE 30 MG VIAL IM ONE (10:45)
[2022-03-30] MEDS ORDERED: KETOROLAC TROMETHAMINE 30 MG VIAL ONE (10:48)
[2022-03-30 16:33] VITALS: BP_SYST 127
== END 2022-03-30 16:58 | disposition home or self-care (01) ==
LOC: SMU 05:37 → SDS 05:37 → SMU 14:08 → SDS 16:58
PROVIDERS: ATTEND Urology
DX: N13.2 Hydronephrosis with renal and ureteral calculous obstruction (principal); N21.1 Calculus in urethra; Z20.822 Contact with and (suspected) exposure to COVID-19
CPT/HCPCS: 36415; 50590; 82962; U0003; J0696; J1100; J1885; J2405; J2704; J3010; J7120